=== PATIENT | female | born 1995 | race Two or more races ===

== ENCOUNTER 2018-07-12 22:58 | Emergency (ER) | payer OTHER ==
[2018-07-12 23:27] VITALS: BP 140/85
[2018-07-12] MEDS ORDERED: OXYCODONE-ACETAMINOPHEN 5-325 MG TABLET PO ONE (23:39)
--- NOTE | 2018-07-12 23:45 | ER Document Report ---
ED General - General Chief Complaint: Pain Stated Complaint: HAND/FEET PAIN Time Seen by Provider: 07/12/18 23:31 TRAVEL OUTSIDE OF THE [place] IN LAST 30 DAYS: No - HPI Notes: Patient is a 23-year-old female that presents to the emergency department for chief complaint of bilateral hand, bilateral feet, and vaginal pain. Patient states that she has had pain in her bilateral hands and feet for the last 6 months. About 1-2 months ago she started having pain in her vagina. She has been seen by [facility]'s medical staff coordinator for her symptoms including dermatology which did biopsies of her vagina and hands. She also reports [employer] has done Pap smears and STD testing. Patient states that everything has returned negative. She states she has an appointment coming up with neurology for further evaluation. She states all of her symptoms started after taking an antibiotic a few months ago. She denies any change in her symptoms today. She denies any vaginal bleeding, vaginal discharge, dysuria, hematuria, fevers, chills, nausea, vomiting. She states she takes Motrin at home for pain and this evening it was not enough to control her symptoms. She denies ever receiving a prescription for stronger pain medication. Past Medical History: Negative Past Surgical History: Negative Social History: Denies drugs alcohol and tobacco Family History: Reviewed and noncontributory for presenting illness Allergies: Reviewed, see documented allergy list. REVIEW OF SYSTEMS: CONSTITUTIONAL : No fever No chills No diaphoresis No recent illness EENT: No vision changes No congestion No sore throat CARDIOVASCULAR: No chest pain No palpitations RESPIRATORY: No shortness of breath No cough No difficulty breathing GASTROINTESTINAL: No abdominal pain No nausea No vomiting No diarrhea GENITOURINARY: No dysuria Vaginal pain No hematuria No difficulty urinating MUSCULOSKELETAL: No back pain Hand pain Feet pain SKIN: No rashes No lesions LYMPHATIC: No swollen, enlarged glands. NEUROLOGICAL: No lightheadedness No headache No weakness No paresthesias PSYCHIATRIC: No anxiety No depression PHYSICAL EXAMINATION: Vital signs reviewed, nursing noted reviewed. GENERAL: Well-appearing, well-nourished and in no acute distress. HEAD: Atraumatic, normocephalic. EYES: Eyes appear normal, extraocular movements intact, sclera anicteric, conjunctiva are normal. ENT: nares patent, oropharynx clear without exudates. Moist mucous membranes. NECK: Normal range of motion, supple without lymphadenopathy LUNGS: Breath sounds clear to auscultation bilaterally and equal. No wheezes rales or rhonchi. HEART: Regular rate and rhythm without murmurs ABDOMEN: Soft, nontender, normoactive bowel sounds. No rebound, guarding, or rigidity. No masses appreciated. EXTREMITIES: Nontender, good range of motion, no pitting or edema. NEUROLOGICAL: No focal neurological deficits. Moves all extremities spontaneously Motor and sensory grossly intact on exam. PSYCH: Normal mood, normal affect. SKIN: Warm, Dry, normal turgor, no rashes or lesions noted on exposed skin - Related Data Allergies/Adverse Reactions: tramadol Allergy (Verified 07/12/18 23:02) Past Medical History - Social History Smoking Status: Never Smoker Family History: Reviewed & Not Pertinent Physical Exam - Vital signs Vitals: Temp Pulse Resp BP Pulse Ox 98.9 F 81 16 140/85 H 100 07/12/18 23:25 07/12/18 23:25 07/12/18 23:25 07/12/18 23:25 07/12/18 23:25 Course - Re-evaluation Re-evalutation: 07/12/18 23:43 Vitals reviewed. Nursing notes reviewed. Patient has a slightly elevated blood pressure which she was told to have rechecked by her primary care. She denies history of hypertension in the past. Her elevated BP is likely related to pain. Patient was given 1 Percocet in the emergency room for her pain. Her symptoms have been ongoing and unchanged for the last 6 months. She was offered pelvic exam, urine testing and STD testing which she has declined. She has no external rashes or lesions on her hands or feet. I do not see any areas of cellulitis. She is nontoxic in appearance. She has an appointment with neurology in the near future for continued testing. Patient is currently declining any further testing in the emergency room stating she came in for pain control. Patient was told that chronic pain management is not something provided by the emergency room however 1 dose in the ER today is appropriate. She will continue to follow with her primary doctors for further pain management. She will return for any new or concerning symptoms. She is stable at discharge. - Vital Signs Vital signs: Temp Pulse Resp BP Pulse Ox 98.9 F 81 16 140/85 H 100 07/12/18 23:25 07/12/18 23:25 07/12/18 23:25 07/12/18 23:25 07/12/18 23:25 Discharge - Discharge Clinical Impression: Vaginal pain, Pain in both feet Hand pain Qualifiers: Laterality: bilateral Qualified Code(s): M79.641 - Pain in right hand; M79.642 - Pain in left hand Condition: Stable Disposition: HOME, SELF-CARE Instructions: Chronic Pain Control ([facility]) Additional Instructions: Please return to the emergency department if you have any worsening, or concern of your symptoms. Please return to the emergency department if you develop chest pain, difficulty breathing, severe abdominal pain, or ongoing vomiting. Please follow-up with your primary care physician in 2-3 days and any other recommended physicians. If prescribed, take all medications as directed. If you have any questions or concerns do not hesitate to return the emergency department for evaluation. Keep your appointment with neurology for further evaluation. Return to the emergency room for new or worsening symptoms. Forms: Elevated Blood Pressure
== END 2018-07-12 23:56 | disposition home or self-care (01) ==
LOC: ER 22:58
DX: M79.641 Pain in right hand (principal); M79.642 Pain in left hand; M79.671 Pain in right foot; M79.672 Pain in left foot; R10.2 Pelvic and perineal pain; R03.0 Elevated blood-pressure reading, without diagnosis of hypertension; Z88.5 Allergy status to narcotic agent
CPT/HCPCS: 99283